=== PATIENT | female | born 1980 | race Caucasian/White ===

== ENCOUNTER → 2022-03-13 10:27 | Outpatient (CLI) | payer OTHER, SELFPAY ==
--- NOTE | ~2022-03-13 | MM_ITS ---
EXAMINATION: MM screening sarai BI w peter HISTORY: Screening TECHNIQUE: Craniocaudal and mediolateral oblique 3-D tomosynthesis images were obtained and synthetic 2-D images were generated. CAD analysis was submitted and interpreted. COMPARISON: No prior mammogram is available for comparison at this institution. BREAST PARENCHYMAL COMPOSITION: Breast composed of scattered areas of fibroglandular density FINDINGS: There is no evidence of suspicious mass, calcification, or architectural distortion to sugg est malignancy in either breast. There has been no suspicious interval change. IMPRESSION: 1. No mammographic evidence of malignancy. 2. Recommend routine screening mammography in one year. BI-RADS Category 1: Negative Reviewed, dictated and finalized at location A.
== END ==
PROVIDERS: PCP Family Medicine Sports Medicine; Visit Provider Obstetrics & Gynecology
DX: Z12.31 Encounter for screening mammogram for malignant neoplasm of breast (principal)
CPT/HCPCS: 77063; 77067

== ENCOUNTER 2023-05-23 00:58 | Day surgery (SDC) | payer OTHER, SELFPAY ==
[2023-05-13 14:23] VITALS: BMI 26.0
--- NOTE | 2023-05-13 14:38 | PC.NURSE ---
Report to the Outpatient Waiting Room, entrance under the green pavilion located off [facility], at 1100 on 05/23/23. Planned Procedure Time: 1300. Time changes happen often and if your time is changed the preop area will call you the afternoon before. - You and your visitor will be asked to self-screen and do not enter if you have any COVID symptoms. - A mask is optional within the hospital at this time. Patients may have clear liquids (water, carbonated beverages, clear teas, apple juice) until 3 hours prior to surgery with a maximum of 20 ounces. - No food from midnight until time of surgery Take the following medications with a SIP of water the morning of surgery: Norethindrone DO NOT STOP ANY OF YOUR OTHER PRESCRIPTION MEDICATIONS PRIOR TO SURGERY ?EXCEPT THE FOLLOWING Medications to discontinue per physician n/a Date to take last dose Please no make-up, nail moldovan, hairspray, perfume, deodorant, or body powder the day of surgery. No jewelry (including any body piercings) or valuables the day of surgery, leave them at home. Please take a shower or bath the night before, or the morning of, surgery with an antibacterial soap. Wear comfortable, loose fitting clothing. - Jewelry must be removed prior to entering the operating room. Rings and piercings that are not removed may be cut off. - The hospital will not accept responsibility for valuables. - Please leave all valuables, including medications, at home the day of surgery. If you are going home after surgery, a licensed funeral car driver must drive you home. - NO public transportation without another adult if you receive anesthesia. - We recommend that an adult stay with you for 24 hours following discharge. - We also recommend that you do not drive, make important decision, drink alcoholic beverages, or take any drugs that were not prescribed by your health care provider for at least 24 hours after your discharge time. Follow any additional instructions given to you from your surgeon. If you or anyone in your household have experienced Covid symptoms in the past week, please notify your surgeon or the nurse liaison at the phone number below for possible testing. Telephone instructions given to patient and asked if any additional questions and then verbalized understanding. Patient advised to call surgeon office or pre surgery nurse liaison [phone] if any additional questions.
--- NOTE | 2023-05-23 11:16 | WPDHPUPDATE1 ---
History and Physical Update Update Date/Time: 05/23/23 11:16 History and Physical has been reviewed, including an updated exam of the patient. There are NO changes in the patient's condition. Risks, benefits, and alternatives have been discussed and questions answered. Patient agrees to proceed with procedure.
--- NOTE | 2023-05-23 11:16 | W.PM.PROC2 ---
Procedure Note - Detailed Date of Procedure 05/23/23 Pre-op Diagnosis Micromastia Post-op Diagnosis Same Procedure Performed Bilateral augmentation mammaplasty Surgeon Alvin Ramsey MD Anesthesia General Findings Bilateral Odilia Bardales SoftTouch 520cc Right - REF# [facility]-520 SN [id number] Left - REF# [id number] SN [id number] Description of Procedure She is here today for bilateral breast augmentation. Previously and again today the risks, benefits, alternatives were discussed in extensive detail. I wanted her to be very realistic about the risks involved as well as expectations. We discussed aftercare and what to monitor for. Made sure answered all of her questions to her satisfaction today and consent was obtained. Marked in the preoperative holding area with their verification. The patient was taken to the operating room placed supine on the operating table. Anesthesia was provided by anesthesiology. A surgical time-out was taken. We cleansed the skin and 1% lidocaine and 0.25% Marcaine with epinephrine was used anesthetize as a field block. She was prepped and draped in a standard sterile fashion. Tegaderm nipple Astudillo were placed. A 15 blade used to make an incision along the inframammary fold. Dissection was continued at 45 degree angle until the chest wall as identified. I incised the pectoralis major along its inferior border and completely released the inferior border leaving the medial border intact. I created a subpectoral pocket in the appropriate dimensions based on our preoperative planning for the implant. I then copiously irrigated with saline solution and verified a strict hemostasis. Next the use a triple antibiotic and Betadine containing solution to irrigate the pocket. I washed my gloves with the triple antibiotic and Betadine solution. We washed the implant immediately upon opening it with this solution and only opened it when we needed it. I used implant funnel and no-touch technique. The implant was introduced into the pocket using the funnel. Having verified positioning of the implant this was closed using 2-0 PDS followed by 3-0 Monocryl in a running subcuticular 4-0 Monocryl followed by tissue glue. Fluffs and surgical bra were placed. Patient was awoke and taken to PACU without difficulty. All instrument sponge counts were correct at the end of the case. Estimated Blood Loss 25 Drains No Packing No Pathology None sent Complications No immediate complications Condition Stable Disposition PACU
[2023-05-23] MEDS: LACTATED RINGERS 1,000 ML 30 ML IV CONT (11:25)
--- NOTE | 2023-05-23 11:42 | P.PNAN_ITS ---
Anes - Initial Pre Proc Eval Procedure: Operation Date: 05/23/23 13:00 Proposed Procedures p Bilateral Breast Augmentation - Alvin Ramsey MD Date/Time: 05/23/23 11:42 Surgeon: Alvin Ramsey MD Pre Op Diagnosis: Micromastia Patient Data Age: 42 Gender: F Height: 1.74 m Weight: 78 kg Allergies Allergy/AdvReac Type Severity Reaction Status Date / Time No Known Allergies Allergy Verified 05/23/23 11:13 Home Medications Medication Instructions Recorded Confirmed Type estradiol 2 mg tablet 2 mg PO DAILY 05/13/23 05/23/23 History norethindrone acetate 5 mg tablet 5 mg PO DAILY 05/13/23 05/23/23 History Patient hx anesthesia problems: none Family hx anesthesia problems: none Results Review: All pre-operative results and documents have been reviewed as part of the pre- operative evaluation. [facility] Social History Social History Smoking packs per day: 0.15 Smoking cigarettes per day: 3.0 Years smoked: 12 Smoking pack-years: 1.80 Smoking status: Former smoker Tobacco type: cigarettes Second hand tobacco smoke exposure: No Smoking end date: 05/13/06 Alcohol intake: current Drinks per week: 3 Alcohol use details: wine Substance use: current Substance use type: marijuana Other substance usage details: daily Living arrangements: with family Spiritual care concerns: No Anes - Eval Final PreProcedure Day of Procedure 05/23/23 11:42 Patient weight: normal Heart: regular rate and rhythm Lungs: clear to auscultation Airway: Mallampati scale class II Neurological: alert and oriented Last oral intake: >/= 8 hours ASA classification: II Emergent: no Anesthetic plan: proceed Anesthesia type and monitoring: general LMA and standard monitoring Results Review: All pre-operative results and documents have been reviewed as part of the pre- operative evaluation. Informed Consent: The patient's anesthetic plan and its attendant risks and benefits were discussed with the patient/family/POA. Questions were solicited and answers provided to the satisfaction of the patient/family/POA.
[2023-05-23] MEDS: ceFAZolin 2 GM/D5W 50 ML 2 GM/50 ML BAG IVPB (11:51)
[2023-05-23] MEDS: LIDO 1%/EPINEPHRINE 1:100,000 20 ML VIAL 30 ML INFILTRATE (12:10)
[2023-05-23] MEDS: BUPivacaine HCL 0.25% PF 30 ML VIAL INFILTRATE (12:11)
[2023-05-23] MEDS: NACL 0.9% IRRIG POUR BOTTLE 900 ML, GENTAMICIN SULFATE INJ 160 MG, ceFAZolin 2 GM, POVI... IRRIGATION (12:12)
--- NOTE | 2023-05-23 12:34 | SUR.OPER ---
checked out 1 amp fentanyl and 60ml of propofol for this patient and gave to anesthesia Lisa Borja HANDKERCHIEF MAKER
[2023-05-23 12:55] VITALS: BP 123/82; PULSE 76; RESP 13; TEMP 36.3; O2SAT 100
[2023-05-23] MEDS: fentaNYL CITRATE INJ (*CRX) 100 MCG/2 ML VIAL 25 MCG IV PUSH ×4 (13:00→13:30)
[2023-05-23 13:10] VITALS: BP 132/79; PULSE 71; RESP 16; O2SAT 98
[2023-05-23 13:25] VITALS: BP 139/79; PULSE 63; RESP 20; O2SAT 99
[2023-05-23 13:42] VITALS: BP 134/79; PULSE 60; RESP 17; O2SAT 99
[2023-05-23 13:55] VITALS: BP 147/81; PULSE 64
[2023-05-23] MEDS: oxyCODONE HCL (*CRX) 5 MG TAB IR PO (13:57)
[2023-05-23 14:25] VITALS: BP 148/82; PULSE 52
== END 2023-05-23 14:43 | disposition home or self-care (01) ==
PROVIDERS: PCP Family Medicine Sports Medicine; Visit Provider Surgery Plastic and Reconstructive Surgery
PROC: (CPT 19325; principal; 2023-05-23 13:00)
DX: Z41.1 Encounter for cosmetic surgery (principal); N64.82 Hypoplasia of breast; Z87.891 Personal history of nicotine dependence; F12.90 Cannabis use, unspecified, uncomplicated
CPT/HCPCS: 19325; A9270; J0690; J1100; J1580; J2250; J2405; J2704; J3010; J7120

== ENCOUNTER 2023-12-09 07:00 | Outpatient (NON) | payer OTHER, SELFPAY | END 2023-12-09 07:01 | disposition home or self-care (01) | LOC: ANHLAB 12-10 07:01 | PROVIDERS: PCP Family Medicine Sports Medicine; Visit Provider Internal Medicine Gastroenterology | DX: R19.7 Diarrhea, unspecified (principal) | CPT/HCPCS: 88305 ==

== ENCOUNTER 2023-12-09 08:56 | Day surgery (SDC) | payer OTHER, SELFPAY ==
[2023-11-24 11:32] VITALS: BMI 26.9
[2023-11-25 14:20] VITALS: BMI 25.6
--- NOTE | 2023-12-08 19:38 | PM.HPGS ---
History of Present Illness History of Present Illness Consent: Risks, benefits, and alternatives have been discussed and questions answered. Patient agrees to proceed with procedure. Chief complaint: Diarrhea,Lower Abdominal Pain,unspecified Narrative: Courtney Goodwin is a 43 year old female who has been having intermittent episodes of diarrhea. She describes her stool as mushy, not hard to go to the bathroom but she will have to come back 3 or 4 times because she thinks she is done but then has to come back. She reports that her stomach starts hurting in the lower abdomen and it almost feels like period pains . Pain is crampy and intermittent and hurts enough to make her vomit. When she vomits she starts sweating her whole body and has to take off all her clothes. Symptoms have no correlation with stress and she has been unable to identify any known triggers. She had her gallbladder removed 2 years ago. She reports that this crampy pain originally started a couple years ago and has been getting more frequent. She also reports a new symptom of acidic diarrhea that feels like pooping burning fire . Review of Systems Review of Systems: All systems reviewed & are unremarkable except as noted in HPI and below PMFSH Social History Social History Smoking packs per day: 0.15 Smoking cigarettes per day: 3.0 Years smoked: 12 Smoking pack-years: 1.80 Smoking status: Former smoker Tobacco type: cigarettes Second hand tobacco smoke exposure: No Smoking end date: 05/13/06 Alcohol intake: current Drinks per week: 5 Alcohol use details: wine Substance use: current Substance use type: marijuana Other substance usage details: daily Last use: Daily Living arrangements: with family Spiritual care concerns: No Meds Home Medications and Allergies Home Medications Medication Instructions Recorded Confirmed Type estradiol 2 mg tablet 2 mg PO DAILY 05/13/23 12/09/23 History norethindrone acetate 5 mg tablet 5 mg PO DAILY 05/13/23 12/09/23 History cholestyramine (with sugar) 4 gram 4 g PO DAILY #30 ea 11/20/23 12/09/23 Rx powder for susp in a packet dicyclomine 10 mg capsule 10 mg PO TID #90 caps 11/20/23 12/09/23 Rx Allergies Allergy/AdvReac Type Severity Reaction Status Date / Time No Known Allergies Allergy Verified 12/09/23 10:19 Exam Resp: Auscultation: clear to auscultation bilaterally Cardio: Rate: regular rate Rhythm: regular rhythm GI: GI Palp: Yes Soft to palpation and No Tenderness to palpation present (GI) Assessment and Plan Assessment and plan (1) Diarrhea: Qualifiers: Diarrhea type: unspecified type Qualified Code(s): R19.7 - Diarrhea, unspecified Code(s): R19.7 - Diarrhea, unspecified Status: Acute Assessment and Plan: Colonoscopy with possible biopsy or polypectomy or cautery or injection of substances.
[2023-12-09 10:25] VITALS: BP 149/81; PULSE 63; RESP 22; TEMP 37.2; O2SAT 100; BMI 24.7
[2023-12-09] MEDS: LACTATED RINGERS 1,000 ML 150 ML IV CONT (10:37)
--- NOTE | 2023-12-09 10:38 | P.PNAN_ITS ---
Anes - Initial Pre Proc Eval Procedure: Operation Date: 12/09/23 11:30 Proposed Procedures p Diagnostic Colonoscopy - Roly Parrish MD Date/Time: 12/09/23 10:38 Surgeon: Roly Parrish MD Pre Op Diagnosis: Diarrhea,Lower Abdominal Pain,unspecified Patient Data Age: 43 Gender: F Height: 1.75 m Weight: 76.15 kg Last Vital Signs Temp 37.2 C 12/09/23 10:25 Pulse 63 12/09/23 10:25 Resp 22 H 12/09/23 10:25 BP 149/81 H 12/09/23 10:25 Pulse Ox 100 12/09/23 10:25 O2 Del Method Room Air 12/09/23 10:25 Allergies Allergy/AdvReac Type Severity Reaction Status Date / Time No Known Allergies Allergy Verified 12/09/23 10:19 Home Medications Medication Instructions Recorded Confirmed Type estradiol 2 mg tablet 2 mg PO DAILY 05/13/23 12/09/23 History norethindrone acetate 5 mg tablet 5 mg PO DAILY 05/13/23 12/09/23 History cholestyramine (with sugar) 4 gram 4 g PO DAILY #30 ea 11/20/23 12/09/23 Rx powder for susp in a packet dicyclomine 10 mg capsule 10 mg PO TID #90 caps 11/20/23 12/09/23 Rx Patient hx anesthesia problems: none Family hx anesthesia problems: none Results Review: All pre-operative results and documents have been reviewed as part of the pre- operative evaluation. [facility] Past Medical History Medical History (Updated 12/09/23 @ 10:38 by Abraham Munoz MD) Anxiety Surgical History Surgical History H/O breast augmentation Social History Social History Smoking packs per day: 0.15 Smoking cigarettes per day: 3.0 Years smoked: 12 Smoking pack-years: 1.80 Smoking status: Former smoker Tobacco type: cigarettes Second hand tobacco smoke exposure: No Smoking end date: 05/13/06 Alcohol intake: current Drinks per week: 5 Alcohol use details: wine Substance use: current Substance use type: marijuana Other substance usage details: daily Last use: Daily Living arrangements: with family Spiritual care concerns: No Anes - Eval Final PreProcedure Day of Procedure 12/09/23 10:38 Patient weight: normal Heart: regular rate and rhythm Lungs: clear to auscultation Airway: Mallampati scale class II Neurological: alert and oriented Last oral intake: >/= 8 hours ASA classification: II Emergent: no Anesthetic plan: proceed Anesthesia type and monitoring: general GIVS and standard monitoring Results Review: All pre-operative results and documents have been reviewed as part of the pre- operative evaluation. Informed Consent: The patient's anesthetic plan and its attendant risks and benefits were discussed with the patient/family/POA. Questions were solicited and answers provided to the satisfaction of the patient/family/POA.
[2023-12-09] MEDS: SIMETHICONE ORAL SUSPENSION 20 MG/0.3 ML 30 ML BOTTLE 0.6 ML IRRIGATION (11:10)
[2023-12-09 11:17] VITALS: BP 124/76; PULSE 75; RESP 15; O2SAT 100
[2023-12-09 11:27] VITALS: BP 125/82; PULSE 68; RESP 16; O2SAT 99
[2023-12-09 11:37] VITALS: BP 135/80; PULSE 60; RESP 16; O2SAT 100
--- NOTE | 2023-12-09 11:53 | WPDANESPN ---
Anes - Prog Note Post-Op Date/Time: 12/09/23 11:53 Cardiovascular status: normal Respiratory status: normal Airway patency: baseline Mental status: baseline Post-Op hydration status: normal Vital Signs: Last Vital Signs Temp 37.2 C 12/09/23 10:25 Pulse 60 12/09/23 11:37 Resp 16 12/09/23 11:37 BP 135/80 12/09/23 11:37 Pulse Ox 100 12/09/23 11:37 O2 Del Method Room Air 12/09/23 11:37 Pain Score (VAS): 0/10 I/O: Intake & Output 12/08/23 12/09/23 12/09/23 23:59 07:59 15:59 Intake Total 500 Balance 500 Patient Feedback: Patient satisfied with anesthetic care.
== END 2023-12-09 11:47 | disposition home or self-care (01) ==
PROVIDERS: PCP Family Medicine Sports Medicine; Visit Provider Internal Medicine Gastroenterology
PROC: 0DJD8ZZ Inspection of Lower Intestinal Tract, Via Natural or Artificial Opening Endoscopic (ICD-10-PCS; CPT 45378; principal; 2023-12-09 11:30)
DX: K59.1 Functional diarrhea (principal)
CPT/HCPCS: 45380

== ENCOUNTER 2025-03-23 01:04 | Day surgery (SDC) | payer OTHER, SELFPAY ==
--- OUTSIDE RECORDS SUMMARY | 2020-05-31 12:13 | XMS_ITS | Continuity of Care Document ---
Author Organization [facility] Address [address] [facility] [address] [place] [address] Phone Care Team Providers Care Satellite Technician Name Role Phone Gladys BENNETTR/Xochitl Amaral Unavailable Unavailabl e Procedures Procedure Date Therapeutic Activities Therapeutic Exercise Neuromuscular Re-Ed Manual Therapy Therapeutic Activities Neuromuscular Re-Ed Therapeutic Exercise Manual Therapy Hot or Cold Pack Therapeutic Activities Therapeutic Exercise Manual Therapy Neuromuscular Re-Ed Hot or Cold Pack Therapeutic Exercise Hot or Cold Pack Neuromuscular Re-Ed Therapeutic Activities Manual Therapy Therapeutic Activities Manual Therapy Neuromuscular Re-Ed Hot or Cold Pack Progress Note Therapeutic Exercise Therapeutic Exercise Therapeutic Activities Manual Therapy Hot or Cold Pack Therapeutic Exercise Hot or Cold Pack Manual Therapy Therapeutic Activities Therapeutic Exercise OT Re-Evaluation Hot or Cold Pack Neuromuscular Re-Ed Therapeutic Activities Progress Note Therapeutic Exercise Hot or Cold Pack Manual Therapy Therapeutic Activities Neuromuscular Re-Ed Manual Therapy Hot or Cold Pack Therapeutic Activities Hot or Cold Pack Manual Therapy Neuromuscular Re-Ed Therapeutic Exercise Therapeutic Activities Hot or Cold Pack Therapeutic Exercise Neuromuscular Re-Ed Orthotic Mgmt and Training Manual Therapy MP Conservation Officer-based Therapeutic Exercise Therapeutic Activities Manual Therapy Hot or Cold Pack Hot or Cold Pack Therapeutic Exercise Manual Therapy Therapeutic Activities Therapeutic Activities Therapeutic Exercise Manual Therapy Hot or Cold Pack OT Evaluation Low Complexity Hot or Cold Pack Therapeutic Exercise Orthotic Mgmt and Training Gutter Across MP-Radial gutter ulnar gut ter Advance Directives Directive Yes / No Effective Date File Name No Information Encounters Encounter Description Practice Location Reason(s) For Visit Diagnoses Date Provider Providers Copied on Encounter [facility], [place], [place], [id number], tel:[phone] Kitty Tellez No Information 1 Gladys Leung. . [facility], [place], [place], [id number], tel:[phone] [place] No Information 1 Roby Pizano. [address] [facility], [address], [place], [address], [place]. tel:[phone] Referring Provider: Vladimir Welch, [address], [place], [address]. tel:[phone], [place], [place], [id number], [place] tel:[phone] [place] No Information Lazaro-0 1 Calashonda Pizano. [address] [place] [address], [address], [place], [address], [place]. tel:[phone] Referring Provider: Vladimir Welch, [address], [place], [address]. tel:[phone] [address], [place], [place], [id number], [place] tel:[phone] [place] No Information Apr-3 0-202 0 Ca Jerica. [address] [place] [address], [address], [place], [address], [place]. tel:[phone] Referring Provider: Vladimir Welch, [address], [place], [address]. tel:[phone] [address], [place], [place], [id number], [place] tel:[phone] [place] No Information Apr-2 0 Ca Jerica. [address] [place] [address], [address], [place], [address], [place]. tel:[phone] Referring Provider: Vladimir Welch, [address], [place], [address]. tel:[phone] [address], [place], [place], [id number], [place] tel:[phone] [place] No Information Apr-2 2-202 0 Ca Jerica. [address] [place] [address], [address], [place], [address], [place]. tel:[phone] Referring Provider: Vladimir Welch, [address], [place], [address]. tel:[phone] [address], [place], [place], [id number], [place] tel:[phone] [place] No Information 0 Roby Pizano. [address] [place] [address], [address], [place], [facility], [place]. tel:[phone] Referring Provider: Vladimir Welch, [address], [place], [address]. tel:[phone] [facility] [address], [place], [place], [id number], tel:[phone] [place] No Information 0 Roby Pizano. [address] [place] [address], [address], [place], [facility], [place]. tel:[phone] Referring Provider: Vladimir Welch, [address], [place], [address]. tel:[phone] [facility] [address], [place], [place], [id number], [place] tel:[phone] [place] No Information 0 Roby Pizano. [address] [place] [address], [address], [place], [address], [place]. tel:[phone] Referring Provider: Vladimir Welch, [address], [place], [address]. tel:[phone] [facility] [address], [place], [place], [id number], [place] tel:[phone] [place] No Information 0 0 Roby Pizano. [address] [place] [address], [address], [place], [address], [place]. tel:[phone] Referring Provider: Vladimir Welch, [address], [place], [address]. tel:[phone] [facility] [address], [place], [place], [id number], [place] tel:[phone] [place] No Information 0 Ca Jerica. [address] [place] [address], [address], [place], [address], [place]. tel:[phone] Referring Provider: Vladimir Welch, [address], [place], [address]. tel:[phone] [address], [place], [place], [address], [place] tel:[phone] [place] No Information 0 Ca Jerica. [address] [place] [address], [address], [place], [address], [place]. tel:[phone] Referring Provider: Vladimir Welch, [address], [place], [address]. tel:[phone] [address], [place], [place], [address], [place] tel:[phone] [place] No Information 0 Ca Jerica. [address] [place] [address], [address], [place], [address], [place]. tel:[phone] Referring Provider: Vladimir Welch, [address], [place], [address]. tel:[phone] [facility] [address] [place], [place] [address], [place], [place], [address], [place] tel:[phone] [place] No Information 0 Ca Jerica. [address] [place] [address], [address], [place], [address], [place]. tel:[phone] Referring Provider: Elvin [address], [place], [address]. tel:[phone] [facility] [address], [place], [place], [id number], [place] tel:[phone] [place] No Information 0 Ca Jerica. [address] [place] [address] [address], [place], [facility], . tel:[phone] Referring Provider: Elvin [address], [place], [address]. tel:[phone], [place], [id number], tel:[phone] [place] No Information 0 Roby Pizano. [address] [place] [address], [address], [place], [facility], [place]. tel:[phone] Referring Provider: Vladimir Welch [address], [place], [address]. tel:[phone], [id number], tel:[phone] [place] No Information 0 Roby Pizano. [address] [place] [address], [address], [place], [facility], [place]. tel:[phone] Referring Provider: Vladimir Welch [address], [place], [address]. tel:[phone], [id number], tel:[phone] [place] No Information 0 David Guzman. [address] [place] [address], [address], [place], [facility], [place]. tel:[phone] Referring Provider: Vladimir Welch [address], [place], [address]. tel:[phone] Family History Family Member Type Diagnosis Age At Onset No Information Payers Payer name Insurance type Covered constitution party ID Authoriza tiyao(s) [facility] CI [id number] Social History Type Description Quantity Date Captured Comments Sex Female Smoking Status No Information Chief Complaint And Reason For Visit No Information Reason For Referral Reason For Referral No Information Plan Of Treatment Date Type Action Status Nutrition Recommendation Nutrition / feed ing management completed History Of Present Illness Encounter Date Complaint History Of Prese nt Illness No Information Functional Status Date Functional Assessmen t No Information Instructions Date Instruction Additional Infor lacie Nutition therapy Related to Over weight Assessments Type Assessment Date No Information Patient Care Teams Name Effective Dates (start - stop) Status Members No Information
[2025-03-09 12:54] VITALS: BMI 25.0
--- NOTE | 2025-03-09 13:12 | PC.NURSE ---
[facility] has started construction of its new state of the art ER which will open Spring 2026. With this, we anticipate parking may be a challenge for some our surgical patients and families. Parking spaces are limited but are available for all Surgical, obstetrics, and ER patients sharing this lot. If you arrive and find you are having a hard time finding a parking space, please note that we understand the challenges, please drive around the hospital and park near Hospital Entrance 1. When you enter this entrance, you can ask a volunteer to direct or take you back to the surgical waiting area to check in. We appreciate everyone?s understanding of these expected challenges while we build for your future. Report to the Outpatient Waiting Room, entrance under the green pavilion located off [address], at time 0830 on date 03/23/25. Planned Procedure Time: 1030.? Time changes happen often and if your time is changed the preop area will call you the afternoon before. - You and your visitor will be asked to self-screen and do not enter if you have any COVID symptoms. Please call surgeon if you need to reschedule. - A mask is optional within the hospital at this time. Patients may have clear liquids (water, carbonated beverages, clear teas, apple juice) until 3 hours prior to surgery with a maximum of 20 ounces. - No food from midnight until time of surgery and no smoking, or chewing tobacco (or any form of nicotine). No chewing gum, candy or mints. - Infants may have breast milk until 4 hours before surgery, formula 6 hours prior to surgery. - Children will be allowed to drink immediately following surgery.? If applicable, please bring a bottle or sippy cup to assist with drinking. Juice, water, soda, and popsicles are readily available.? For infants on formula, please bring formula the day of surgery.? Pacifiers are allowed. Take only the following medications with a SIP of water on the morning of surgery: N/A DO NOT STOP ANY OF YOUR OTHER PRESCRIPTION MEDICATIONS PRIOR TO SURGERY EXCEPT THE FOLLOWING Hold all vitamins and supplements for 3 days per anesthesiologist. Medications to discontinue per physician N/A Please no make-up, nail [place] of [place], hairspray, perfume, deodorant, or body powder the day of surgery.? No jewelry (including any body piercings) or valuables the day of surgery, leave them at home.? Please take a shower or bath the night before, or the morning of, surgery with an antibacterial soap.? Wear comfortable, loose fitting clothing.? Children are encouraged to wear pajamas. - Jewelry must be removed prior to entering the operating room.? Rings and piercings that are not removed may be cut off. - The hospital will not accept responsibility for valuables.? - Please leave all valuables, including medications, at home the day of surgery. If you are going home after surgery, a licensed lyft driver must drive you home.? - NO public transportation without another adult if you receive anesthesia. - We recommend that an adult stay with you for 24 hours following discharge. - We also recommend that you do not drive, make important decision, drink alcoholic beverages, or take any drugs that were not prescribed by your health care provider for at least 24 hours after your discharge time. For Pediatric surgeries, we recommend two adults accompany the child home. Follow any additional instructions given to you from your surgeon. Telephone instructions given to ____Courtney and asked if any additional questions and then verbalized understanding. Patient advised to call surgeon office or pre surgery nurse liaison [phone] if any additional questions.
--- OUTSIDE RECORDS SUMMARY | 2025-03-23 01:07 | XMS_ITS | Patient Health Record ---
Author Organization [facility] Address [address] [place] [address] Care Team Providers Care Principal Associate Name Role Phone Arvind Alegria MD Primary Care Provider Unavail Asif Echevarria Unavailable [phone] Allergies No Known Allergies Reason For Referral No Information Medications Medication SIG (Take, Route, Frequency, Duration) Notes Start Date End Date Status Norethindrone Acetate Active Estradiol Active Pantoprazole Sodium 40 MG 1 tablet Orall y Once a day; Duration: 30 day(s) 12/06/2020 Active Social History Tobacco Use: Social History Observation Description Date Details (start date - stop date) Former Smoker NA - NA Tobacco Use/Smoking Question Answer Notes Are you a former smoker How long has it been since you last smoked? > 10 years Problems Problem Type SNOMED Code ICD Code Onset Dates Problem Status W/U Status Risk Notes Problem Epigastric pain (89869053) Epigastric pain (R10.13) Active confirmed She complains of upper abdominal pain that radiates to her chest and back shoulder blades. Suspect symptoms may be related to gallbladder dysfunction. Problem Nausea and vomiting (41120925) Nausea and vomiting (R11.2) Active confirmed She has been having nausea and vomiting for the last couple of years. Her symptoms are worse in the morning when waking up. She frequently brings up bile. Prior ultrasound imaging has been normal. Differential diagnosis includes gallbladder dysfunction, gastritis, peptic ulcer, or others. Problem Loose stools (628106240) Loose stools (R19.5) Active confirmed Her bowel movements are irregular. The consistency varies between being soft and loose. She often has to vomit when she is having a bowel movement Problem Backache (326130847) Pain radiating to back (M54.9) Active confirmed Plan Of Treatment Pending Test Test Name Order Date Upper Endoscopy 12/06/2020 Insurance Providers Payer Name Payer Address Payer Phone Subscriber Number Group Number Insured Name Patient Relationship to Insured Coverage Start Date Coverage End Date [facility] Choice/ choice Plus [id number] [address] [address] [place] [address] [id number] Jeanmarie Goodwin Spouse - patient is the spouse of the insured Medical (General) History Surgical History Surgery Date(Month/Year) Tubal Ligation Broken Middle Finger
--- OUTSIDE RECORDS SUMMARY | 2025-03-23 01:07 | XMS_ITS | Clinical Summary ---
Author Organization [email or web address] Address [address] [place] [address] Care Team Providers Care Hydro Technician Name Role Phone Unavailable Primary Care Provider Unavailabl e Source Comments [email or web address],non-owned Affiliates and Associated Physician Practices is amultiple site organization consisting of ambulatory clinics and hospital sitesin [place], [place], [place] and [place]. This disclosure is being madepursuant to the Care Everywhere program and may not contain all information available regarding this patient. Last updated 18.[email or web address] Allergies No known active allergies Medications * Be aware that medications may not be up to date on this document. Alwaysverify current medications with the patient. methylPREDNISol one (MEDROL DOSEPAK) 4 MG tablet 1 dose pack PO as directed on package 1 Each 7 Active albuterol HFA (PROAIR HFA) 108 (90 BASE) MCG/ACT inhaler Inhale 2 Puffs by mouth every 4 hours as needed for Shortness of Breath, Wheezing or Cough 1 Inhaler 7 Active Active Problems No known active problems Social History Tobacco Use Types Packs/Day Years Used Date Smoking Tobacco: Never Comments Unknown Sex and Gender Information Value Date Recorded Sex Assigned at Not on file Legal Sex Female 10:24 AM CDT Gender Identity Not on file Sexual Orientation Not on file Last Filed Vital Signs Vital Sign Reading Time Taken Comments Blood Pressure 108/62 09/06/2016 2:32 PM CDT Pulse 64 09/06/2016 2:32 PM CDT Temperature 36.7 C (98 F) 09/06/2016 2:32 PM CDT Respiratory Rate 18 09/06/2016 2:32 PM CDT Oxygen Saturation 98% 09/06/2016 2:32 PM CDT Inhaled Oxygen Concentration - - Weight 74.8 kg (165 lb) 09/06/2016 2:32 PM CDT Height 174 cm (5' 8.5) 09/06/2016 2:32 PM CDT Body Mass Index 24.72 09/06/2016 2:32 PM CDT Plan of Treatment Health Maintenance Due Date Last Done Comments COLOGUARD (AGES 45-75) - COL ON CA SCREENING 1978 COLON MONITORING 1978 COLONOSCOPY - COLON CA SCREENING 1978 CT COLONOGRAPHY - COLON CA SCREENING 1978 Colorectal Cancer Screening 1978 FIT - COLON CA SCREENING 1978 FLEX SIG - COLON CA SCREENING 1978 LIPID TESTING 1978 MAMMOGRAM 1978 HIV SCREENING 1993 HEPATITIS C SCREENING 10/10/1996 DTAP/TDAP/TD VACCINES (1 - Tdap) 1997 HEPATITIS B VACCINE (1 of 3 - 19+ 3-dose series) 1997 PAP SMEAR 10/16/1999 DEPRESSION SCREENING 05/12/2024 COVID-19 VACCINE (1 - 2023-2 5 season) 2025 INFLUENZA VACCINE (#1) 2025 ZOSTER VACCINE (1 of 2) 2028 HIB VACCINE Aged Out No longer eligi ble based on patient's age to complete this topic HPV VACCINE Aged Out No longer eligi ble based on patient's age to complete this topic MENINGOCOCCAL (Group B) VACC INE SHARED DECISION-MAKING Aged Out No longer eligibl e based on patient's age to complete this topic MENINGOCOCCAL GROUPS A/C/Y/W VACCINE Aged Out No longer eligible b ased on patient's age to complete this topic PNEUMOCOCCAL VACCINE Aged Out No long er eligible based on patient's age to complete this topic Insurance [facility] * Guarantor: COURTNEY GLOVER Account Type Relation to Patient Date of Phone Billing Address Personal/Family [address] [place] [address] SELF PAY NO INSURANCE Member Subscriber Plan / Payer (Ef fective for All Dates) Name:Courtney Glover Member ID:Not on file Relation to Subscriber:Not on file Name:COURTNEY GLOVER Subscriber ID:Not on file Address: [address] [place] [address] Payer ID:Not on file Group ID:Not on file Type:Self Pay Address: [facility] * Guarantor: COURTNEY GLOVER Account Type Relation to Patient Date of Phone Billing Address Personal/Family [address] [place] [address] SELF PAY NO INSURANCE Member Subscriber Plan / Payer (Ef fective for All Dates) Name:Courtney Glover Member ID:Not on file Relation to Subscriber:Not on file Name:COURTNEY GLOVER Subscriber ID:Not on file Address: [address] [place] [address] Payer ID:Not on file Group ID:Not on file Type:Self Pay Address: [facility] Member Subscriber Plan / Payer (Ef fective 2023-Present) Name:Courtney Glover Relation to Subscriber:Spouse Name:Christa Jeanmarie Millan Date of :1967 Address: [address] [place] [address] Payer ID:[id number] (NAIC) Type:HMO Address: [id number] * Guarantor: COURTNEY GLOVER Account Type Relation to Patient Date of Phone Billing Address Personal/Family [address] [place] [address] SELF PAY NO INSURANCE Member Subscriber Plan / Payer (Ef fective for All Dates) Name:Courtney Glover Member ID:Not on file Relation to Subscriber:Not on file Name:COURTNEY GLOVER Subscriber ID:Not on file Address: [address] [place] [address] Payer ID:Not on file Group ID:Not on file Type:Self Pay Address: [facility] Member Subscriber Plan / Payer (Ef fective 2023-Present) Name:Courtney Glover Relation to Subscriber:Spouse Name:Jeanmarie Glover Date of :1967 Address: [address] [place] [address] Payer ID:[id number] (NAIC) Type:[employer] Address: [place] [id number]
--- OUTSIDE RECORDS SUMMARY | 2025-03-23 01:07 | XMS_ITS | Data Portability ---
Author Organization [facility] Address [address] [place] [address] [place] [address] Care Team Providers Care Manager Ethics Name Role Phone THOMASCARLEY FISH Primary Care Provider [phone] Assessment No assessment recorded. Plan of Treatment Reminders Order Date Submit Date Provider Last Modified By Organization Details Last Modified Time Details Appointments SURG Hysterosc opy 2024 10:30A Idania PHILLIPS MD Not available Not available Not available U/S F/U 2024 03:30P Idania PHILLIPS MD Not available Not available Not available SURG POST OP 2024 02:45P Idania PHILLIPS MD Not available Not available Not available Lab urinalysi s, dipstick 2024 025 [email or web address] [address], [address], [place], [address], 08/16/2024 17:52:26 Referral None recorded. Procedures None recorded. Surgeries hysterosc opy, with endometri al ablation (SURG) 2024 025 [id number] [facility], [address], [place], [address], 03/07/2025 10:22:22 Imaging US, transvagi nal 2024 025 NANCY [address], [address], [place], [address], 03/21/2025 18:34:42 US, pelvis 2024 025 [email or web address] [address], [address], [place], [address], 01/18/2025 19:42:30 US, transvagi nal 2024 025 [email or web address] [address], [address], [place], [address], 01/18/2025 19:42:30 Medication Orders cyanocoba judit (vit B-12) 1,000 mcg/mL injection solution 2024 025 [employer] [facility], [address] [place] [address], [address], 03/05/2025 11:37:29 Patient TargetsNo targets recorded. Patient InstructionsNo instructions recorded. Reason for Referral None Reported. Results Created Date Observation Date Name Description Value Unit Range Abnormal Flag Note LastModifiedBy Organization Detail LastModifiedTime 08/17/1908/16/2024 CT/GC AND TRICH OMONA S VAGIN LOS (RRNA ), URINE chlamydia trachomatis, PCR Negati ve negati ve Not Available [facility] (Lab) [address] [facility], [place], [address], 08/17/2024 12:08:17 08/17/19 25 08/16/2024 CT/GC AND TRICH OMONA S VAGIN LOS (RRNA ), URINE neisseria gonorrhoeae, PCR Negati ve negati ve Not Available [facility] (Lab) [address] , [place], [address], 08/17/2024 12:08:17 08/17/19 25 08/16/2024 CT/GC AND TRICH OMONA S VAGIN LOS (RRNA ), URINE trichomonas vaginalis ribosomal RNA (rrna) Negati ve negati ve Not Available [facility] (Lab) [address] , [place], [address], 08/17/2024 12:08:17 01/19/20 25 01/18/2025 US, pelvi s No observ ation record ed. [email or web address] [address], [place], [address], 01/18/2025 17:50:22 01/19/20 25 01/18/2025 US, trans vagin al No observ ation record ed. [email or web address] [address], [place], [address], 01/18/2025 17:50:33 01/19/20 25 01/18/2025 US, pelvi s No observ ation record ed. [email or web address] [address], [place], [address], 01/18/2025 19:26:48 03/21/20 25 03/21/2025 US, trans vagin al No observ ation [facility] [address], [place], [address], 03/21/2025 18:52:35 03/21/20 25 03/21/2025 US, trans vagin al No observ ation record ed. [email or web address] [address], [place], [address], 03/22/2025 11:13:31 Result Notes None recorded. Problems Name Problem SNOMED Code Status Onset Date Resolution Date Notes Provider Name and Address Organization Details Recorded Time Routine antenata l care Completed 201008/24/2013 Supervis ion of other normal pregnanc y;Record ed Elsewher e: No Locat ion: [facility] Source: EHR Grinder Set Up Operator Gear Tool brenda: N Practi ce ID: 0001 Surya lable Time: 02:00:00 PM Tina cortés [facility] 2 09:52:02 Dysuria [id number] Completed 201308/02/2021 Dysuria; Practice ID: [id number] Tina cortés [facility] 2 09:53:07 Generali zed hyperhid rosis [id number] Active 2016 Generali zed hyperhid rosis;Pr actice ID: 0001 Not Available [facility] 0 14:38:24 Emotiona l state finding Active 2018 Anxiety depressi on;Recor ded Elsewher e: No [facility]at [facility] ource: EHR Grinder Set Up Operator Gear Tool brenda: N Practi ce ID: 0001 Surya lable Time: 11:00:00 AM Not Available [facility] 0 14:38:25 Menopaus e present 532809405 Active 2018 Menopaus al and female climacte adriel states;P ractice ID: 0001 Not Available [facility] 0 14:38:24 Problem Notes None recorded. Procedures Surgical History Date Name Laterality Status Provider Name and Address Organization Details Recorded Time 05/23/19 24 Breast Implants completed [facility] 11/17/2023 11:10:41 10/27/19 23 Date of Last Pap Smear completed [facility] 11/17/2023 11:07:45 03/13/20 22 Date of Last Mammogram completed [facility] 02/27/2023 11:49:56 03/12/20 21 Cholecystectomy completed Tina Garcia [facility] 08/02/2021 10:06:05 05/12/19 13 Colposcopy completed Dinora Wilson [facility] 04/17/2020 12:20:32 10/11/19 12 Tubal Ligation completed Dinora Wilson [facility] 04/17/2020 12:19:03 Imaging Results None recorded. Procedure Notes None recorded. Medical Equipment None Reported. Allergies No known drug allergies Medications Name Sig Start Date Stop Date Status Note LastModified by Organization Details LastModified Time Prescript ion - Prior Authoriza tion Request active Not Available Not Available Not Available compound drug 02/27 completed Not Available Not Available Not Available lidocaine 2%/antaci d/diphenh y111 SWISH AND SPIT 10ML EVERY 6 HOURS FOR 3 DAYS 02/27 completed Not Available Not Available Not Available carisopro dol 350 mg tablet TAKE 1 TABLET BY MOUTH EVERY 8 HOURS NEEDED FOR PAIN OR MUSCLE SPASM 10/26 completed Not Available Not Available Not Available amoxicill in 500 mg capsule TAKE 1 CAPSULE BY MOUTH TWICE DAILY FOR 7 DAYS 02/27 completed Not Available Not Available Not Available fluconazo le 100 mg tablet 02/27 completed Not Available Not Available Not Available doxycycli ne hyclate 100 mg capsule TAKE 1 CAPSULE BY MOUTH TWICE DAILY FOR 5 DAYS 02/27 completed Not Available Not Available Not Available clindamyc in HCl 300 mg capsule TAKE 1 CAPSULE BY MOUTH THREE TIMES DAILY FOR 10 DAYS 02/27 completed Not Available Not Available Not Available ibuprofen 800 mg tablet TAKE 1 TABLET BY MOUTH EVERY 8 HOURS NEEDED FOR PAIN 08/02 completed Not Available Not Available Not Available fluconazo le 150 mg tablet take 1 tablet by oral route today, and second pill in 2 days active Not Available Not Available No t Available valacyclo vir 1 gram tablet TAKE 1 TABLET BY MOUTH THREE TIMES DAILY FOR 7 DAYS 08/30 completed Not Available Not Available Not Available hydrocodo ne 5 mg-acetam inophen 325 mg tablet TAKE 1 TABLET BY MOUTH EVERY FOUR HOURS NEEDED FOR PAIN 08/02 completed Not Available Not Available Not Available Adderall 5 mg tablet take 1 tablet by oral route 2 times every day before breakfas t and at noon 09/24 completed Prescrib april Elsew e: Yes Loca tion: [facility] M odify By: [email or web address] Encounte r DateTime : 04/23/20 18 09:45:00 AM Not Available Not Available Not Available fluconazo le 200 mg tablet Take 1 tablet PO on days 1, 4 & 7 x 3 doses. 02/27 completed Not Available Not Available Not Available ondansetr on HCl 4 mg tablet TAKE 1 TABLET BY MOUTH EVERY 6 HOURS NEEDED FOR NAUSEA 10/26 completed Not Available Not Available Not Available testoster one cypionate 100 mg/mL intramusc ular oil ADMINIST ER 0.5 ML IN THE MUSCLE EVERY 2 WEEKS 2024 active Not Available Not Available Not Avai louisa Rashaad es Complete (iron) chewable tablet 04/23 completed Prescrib ed Elsewher e: No [facility] odify By: [email or web address] trick En counter DateTime : 01/30/20 11 02:00:00 PM Not Available Not Available Not Available Zithromax Z-Lei 250 mg tablet take 2 tablet (500MG) by oral route every day for 1 day then 1 tablet (250 mg) by oral route once daily for 4 days 09/13 completed Prescrib ed Elsewher e: No [facility] : 09/06/19 12 11:17:03 AM Not Available Not Available Not Available ciproflox acin 500 mg tablet Take 1 tablet every 12 hours by oral route. 10/26 completed Not Available Not Available Not Available sulfameth oxazole 800 mg-trimet hoprim 160 mg tablet TAKE 1 TABLET BY MOUTH EVERY 12 HOURS 08/02 completed Not Available Not Available Not Available omeprazol e 40 mg capsule,d elayed release TAKE 1 CAPSULE BY MOUTH DAILY 08/02 completed Not Available Not Available Not Available Reglan 10 mg tablet take 1 tablet (10MG) by oral route 4 times every day 30 minutes before meals and at bedtime 04/23 completed Prescrib ed Elsewher e: No Locat ion: [facility] odify By: [email or web address] trick En counter DateTime : 02/19/20 11 09:33:07 AM Not Available Not Available Not Available triamcino lone acetonide 0.1 % topical cream APPLY GRAM TOPICALL Y TO THE AFFECTED AREA TWICE DAILY 02/27 completed Not Available Not Available Not Available nystatin- triamcino lone 100,000 unit/gram -0.1 % topical ointment APPLY TOPICALL Y TO THE AFFECTED AREA TWICE DAILY NEEDED 10/26 completed Not Available Not Available Not Available cefadroxi l 500 mg capsule 05/18 completed Not Available Not Available Not Available oxycodone -acetamin ophen 5 mg-325 mg tablet TAKE 1 TABLET BY MOUTH EVERY 6 HOURS NEEDED FOR PAIN 10/26 completed Not Available Not Available Not Available Metrogel Vaginal 0.75 % (37.5 mg/5 gram) insert 1 applicat orful by vaginal route every day at bedtime for 5 nights 07/24 completed Prescrib ed Elsewher e: No [facility] odify By: [email or web address] arsenk En counter DateTime : 12/15/19 14 09:50:22 AM Not Available Not Available Not Available estradiol 1 mg tablet take 1 tablet by oral route every day 07/07 completed Prescrib ed Elsewher e: No Locat ion: [facility] odify By: [email or web address] Gunner r DateTime : 04/23/20 18 09:45:00 AM Not Available Not Available Not Available Flagyl 500 mg tablet take 1 tablet by oral route twice a day for 7 days 03/26 completed Prescrib ed Elsewher e: No Locat ion: [facility] odify By: [email or web address] n Ish ter DateTime : 02/18/20 19 11:08:24 AM Not Available Not Available Not Available phenazopy ridine 100 mg tablet TAKE 1 TABLET BY MOUTH THREE TIMES DAILY FOR 7 DAYS NEEDED 02/27 completed Not Available Not Available Not Available pantopraz ole 40 mg tablet,de layed release TAKE 1 TABLET BY MOUTH EVERY DAY 02/27 completed Not Available Not Available Not Available cyanocoba judit (vit B-12) 1,000 mcg/mL injection solution Inject 1 mL every month by subcutan eous route. 2024 active Not Available Not Available Not Avai lable docusate sodium 100 mg capsule TAKE ONE CAPSULE BY MOUTH TWICE DAILY 10/26 completed Not Available Not Available Not Available estradiol 2 mg tablet TAKE 1 TABLET DAILY (MUST MAKE APPOINTM ENT BEFORE ANY FUTURE REFILLS AND WILL ONLY FILL FOR 1 MONTH) 2024 active Not Available Not Available Not Avai lable norethind eric acetate 5 mg tablet TAKE 1 TABLET BY MOUTH EVERY DAY 2024 active Not Available Not Available Not Avai lable ergocalci ferol (vitamin D2) 1,250 mcg (50,000 unit) capsule TAKE 1 CAPSULE BY MOUTH WEEKLY FOR 8 WEEKS 08/30 completed Not Available Not Available Not Available Vitamin B-6 50 mg tablet take 1 by Oral route every 12 for 30 02/27 completed Prescrib ed Elsewher e: No Locat ion: [facility] Modify By: june godinez DateTime : 01/30/20 11 02:00:00 PM Not Available Not Available Not Available methylpre dnisolone 4 mg tablets in a dose pack FOLLOW PACKAGE DIRECTIO NS 02/27 completed Not Available Not Available Not Available ondansetr on 4 mg disintegr ating tablet DISSOLVE 1 TABLET ON THE TONGUE EVERY 6 TO 8 HOURS NEEDED FOR NAUSEA OR VOMITING 08/02 completed Not Available Not Available Not Available dicyclomi ne 10 mg capsule TAKE 1 CAPSULE BY MOUTH THREE TIMES DAILY active Not Available Not Available No t Available progester one micronize d 100 mg capsule Take 2 capsules every day by oral route for 12 days. active Not Available Not Available No t Available amoxicill in 875 mg-potass ium clavulana te 125 mg tablet TAKE 1 TABLET BY MOUTH TWICE DAILY FOR 7 DAYS 08/30 completed Not Available Not Available Not Available Benadryl Allergy 25 mg tablet take 2 tablet (50MG) by oral route 4 - 6 hours as needed 04/23 completed Prescrib ed Elsewher e: No Locat ion: [facility] Modify By: [email or web address] trick En counter DateTime : 01/30/20 11 02:00:00 PM Not Available Not Available Not Available cholestyr amine (with sugar) 4 gram powder for susp in a packet ADMINIST ER 1 PACKET EVERY DAY WITH A MEAL. AVOID OTHER MEDS WITHIN 1 HOUR OR 4 TO 6 HOURS AFTER DOSE active Not Available Not Available No t Available nitrofura ntoin monohydra te/macroc rystals 100 mg capsule take 1 capsule (100MG) by oral route every 12 hours with food x 7 days 10/26 completed Not Available Not Available Not Available 19 29 mg iron-1 mg chewable tablet chew 1 tablet by oral route every day 04/23 completed Prescrib ed Elsewher e: No Locat ion: [facility] odmary carmen By: [email or web address] trick En counter DateTime : 02/15/20 10:48:08 AM Not Available Not Available Not Available Vitals Date Recorded Body height Body mass index (BMI) Body weight Systolic And Diastolic Provider Name and Address Organization Details Last Updated DateTime 08/16/2024 170.18 cm 27.3 kg/m2 90410.07 g 126/88 mm[Hg] Donna [facility] 08/16/2024 17:51:26 Date Recorded Body height Provider Name an d Address Organization Details Last Updated DateTime 01/19/2025 170.18 cm [facility] 01/19/2025 15:38:13 Date Recorded Body height Body mass index (BMI) Body weight Systolic And Diastolic Provider Name and Address Organization Details Last Updated DateTime 03/05/2025 170.18 cm 27.4 kg/m2 31353.66 g 129/77 mm[Hg] Erica Ferreira [facility] 03/05/2025 10:37:40 Social History Question Answer Notes LastModified by Organizat ion Details LastModified Time Tobacco Smoking Status Former [facility] 02/27/2023 11:52:17 Do You Have An Advance Directive? No Information not available 08/02/2021 How Many Years Have You Consumed Alcohol? 15 Information not available 08/02/2021 Are You Blind Or Do You Have Difficulty Seeing? No Information not available 08/02/2021 What Is Your Level Of Caffeine Consumption? Occasional Information not available 08/02/2021 How Much Tobacco Do You Chew? None Information not available 08/02/2021 In The 14 Days Before Symptom Onset, Have You Had Close Contact With A Laboratory-confir med COVID-19 While That Case Was Ill? No Information not available 08/02/2021 In The 14 Days Before Symptom Onset, Have You Had Close Contact With A Person Who Is Under Investigation For COVID-19 While That Person Was Ill? No Information not available 08/02/2021 Have You Been To An Area Known To Be High Risk For COVID-19? No Information not available 08/02/2021 Are You Deaf Or Do You Have Serious Difficulty Hearing? No Information not available 08/02/2021 What Type Of Diet Are You Following? REGULAR Information not available 08/02/2021 What Is The Highest Grade Or Level Of School You Have Completed Or The Highest Degree You Have Received? [id number] Information not available 08/02/2021 Are There Any Guns Present In Your Home? No Information not available 08/02/2021 Do You Use Protection During Sex? No Information not available 08/02/2021 Do You Use Your Seat Belt Or Car Seat Routinely? Yes Information not available 08/02/2021 Do You Have Smoke And Carbon Monoxide Detectors In Your Home? Yes Information not available 08/02/2021 At What Age Did You Start Smoking Tobacco? 11 Information not available 08/02/2021 How Much Tobacco Do You Smoke? No Information not available 08/02/2021 Do You Use Sunscreen Routinely? Yes Information not available 08/02/2021 Have You Used IV Drugs? No Information not available 08/02/2021 Do You Have Difficulty Walking Or Climbing Stairs? No [email or web address] Information not available 10/27/2023 Sex: Unknown Functional Status Question Answer Note LastModified by Organizat ion Details LastModified Time Do you use any illicit or recreational drugs? No Information not available 08/02/2021 What is your level of alcohol consumption? Occasional Information not available 08/02/2021 Are you able to walk independently without assistance or assistive devices? YESWOREST Information not available 08/02/2021 Are you able to care for yourself independently? Yes Information not available 10/27/2023 What is your occupation? None Information not available 08/02/2021 Do you have difficulty dressing, bathing, grooming, or toileting? No [email or web address] Information not available 10/27/2023 What is your exercise level? Heavy Information not available 08/02/2021 Mental Status Question Answer Note LastModified by Organization D etails LastModified Time Do you feel stressed (tense, restless, nervous, or anxious, or unable to sleep at night)? [id number] Information not available 08/02/2021 Family History Relationship Description Onset Age of this Age Resolved Age Notes LastModified by Organization Details LastModified Time Father No current problems or disability [email or web address] Not available 11/2019 12:18:50 Mother No current problems or disability [email or web address] Not available 11/2019 12:18:50 Medical History Condition Response History of STI History of abnormal pap Y Psychiatric Illness Y Gynecological History Statement/Question Response Abnormal Pap Yes Date of Last Mammogram 03/13/2022 Date of LMP N Was last menstrual period normal Y STIs/STDs Y HPV Vaccine N Current Control Method Tubal Ligat ion Age at First Child 14 If Post Menopausal, Age at Menopause 37 Sexually Active? Y Menses Monthly N Age of first menstrual cycle 10 Date of Last Pap Smear 10/26/2022 Sexual Problems? N LMP Unknown Y Obstetrics History GPAL:G 1 P 1 0 0 1 Type Value Full Term 1 Living 1 Total 1 Past Encounters Encounter ID Performer Location Encounter Start Date Encounter Closed Date Diagnosis/Indication Diagnosis SNOMED-CT Code Diagnosis ICD10 Code Diagnosis IMO Codes Diagnosis Note [id number] Edgardo Phillips MD [place] [address] [address] 05/18/2020 09:45:59 05/18/2020 10:30:34 Gynecologic examination 45967347 Z01.419 This patient is here for her annual exam. A thorough history was taken. A physical exam was performed. Age appropriat e routine health screening was ordered, performed, and discussed. Recommende d testing was ordered. She was asked to follow up in one year. She will be informed of any test results. Mammogram - [ordered] Cholestero l - [ ordered] Pap - today [id number] Edgardo Phillips MD [place] [address] [address] 06/27/2020 12:43:01 06/28/2020 16:29:08 Urinary tract infectious disease 32309235 N39.0 [id number] Edgardo Phillips MD [place] [address] [address] 08/02/2021 09:31:52 08/02/2021 10:28:31 Gynecologic examination 81237046 Z01.419 This patient is here for her annual exam. A thorough history was taken. A physical exam was performed. Age appropriat e routine health screening was ordered, performed, and discussed. Recommende d testing was ordered. She was asked to follow up in one year. She will be informed of any test results. Mammogram - [ordered] Cholestero l - [ ordered] Pap - today [id number] Guerline Cifuentes [facility] [address],[place] [address] 08/30/2022 14:49:30 08/30/2022 16:35:10 Urinary symptoms 900649951 R39.9 Urine sent cultureTre ated UTIRx sent Counseled on r/b's, most common side effects of this therapy with instructio ns to stop medication with any significan t abnormal change in mood especially with thoughts of suicide/se lf-harm/benjamin rm to others. Understand ing verbalized . Time spent in visit is a total of 15 mins with at least 50% of visit consisting of counseling and review of plan of care. [id number] Guerline Cifuentes [facility] [address],[place] [address] 02/27/2023 11:50:17 02/27/2023 12:17:53 Urinary symptoms 533462342 R39.9 Vaginitis 39426189 N76.0 Ointment sent for vulvar irritation .STD screen sentVagnit is swab sentWill contact with results and any further treatment needed. Time spent in visit is a total of 15 mins with at least 50% of visit consisting of counseling and review of plan of care. [id number] Edgardo Phillips MD [place] [address],[place] [address] 10/27/2023 10:12:07 10/27/2023 11:20:38 Irritable bowel syndrome 17474717 K58.9 needs referral for alternatin g constipati on and excessive stool. Gynecologi c examination 90314080 Z01.419 Z11.51 This patient is here for her annual exam. A thorough history was taken. A physical exam was performed. Age appropriat e routine health screening was ordered, performed, and discussed. Recommende d testing was ordered. She was asked to follow up in one year. She will be informed of any test results. Cholestero l - [ ordered] Pap - today MD Mervin Whyte [address] [address] 11/17/2023 10:50:15 11/18/2023 15:55:19 Testosterone level below reference range 896676464 R89.1 Reduced libido 5303269 R 68.82 Lack of energy 431485755 R53.83 patient has a normal breast exam. We elected not to do any imaging. She will maintain mammogram Surveillan ce of the breasts. Talked about reduced libido and decreased energy. We agreed to a trial of testostero ne. She will obtain the testostero ne and bring it and get instructio n on injection of testostero ne. Spent more than 20 minutes total with the patient and the work required to complete her care. [id number] Edgardo Phillips MD [place] [address],[place] [address] 11/26/2023 09:54:56 11/26/2023 10:43:04 Testosterone level below reference range 762427917 R89.1 [id number] Edgardo Phillips MD [place] [address] [address] 08/16/2024 12:44:02 08/17/2024 07:34:24 Dysuria 53557904 R30.0 [id number] MD Mervin Whyte [address] [address] 01/18/2025 15:54:18 01/18/2025 17:05:45 Postmenopausal bleeding 88482739 N95.0 [id number] MD Mervin Whyte [address] [address] 01/19/2025 15:14:58 01/19/2025 15:57:59 Postmenopausal bleeding 34587424 N95.0 [id number] this patient is a 44-year-ol d female who presents for follow-up on ultrasound . She had some postmenopa usal bleeding. She had a pelvic ultrasound . She was found to have a 4.5 cm ovarian cyst. She is a thin endometriu m. We agreed to discontinu e progestin for 3 weeks. She is on hormone replacemen t therapy, combined. we agreed to observe bleeding. Endometria l biopsy not required at this time with a 2 mm endometriu m. To follow-up on ovarian cyst in 2 months with repeat ultrasound [id number] Edgardo Phillips MD [place] [address] [address] 03/05/2025 10:09:00 03/05/2025 21:33:54 Drug therapy finding 080683972 Z79.890 98940446 Cobalamin deficiency 190 702380 E53.8 [id number] Menorrhagia 093224646 N9 2.0 [id number] This patient is a 44-year-ol d female presents for heavy vaginal bleeding. She has longstandi ng very heavy bleeding. Her menses are regular. However, they require double protection . Patient has accidents, getting blood on her bedding and clothing. Is affected work. She changes a pad or tampon every hour. She leaks blood around the pad and tampon. This bleeding has a profound impact on her quality of life and her activities of daily living. Discussed various treatment options with the patient. We agreed to endometria l ablation. The patient understand s the procedure. The procedure was described to the patient in great detail. the patient also understand s the risks. The risks were also explained in detail. She understand s that injuries May occur during surgery. She understand s these injuries can result in hospitaliz ation, more surgery, and severe illness. She understand s there is risk of hemorrhage and infection. Spent over 30 minutes on the patient's care in total. We talked about hormone replacemen t therapy. Talked about B12 deficiency in addition to the above [id number] Edgardo Phillips MD [place] [address] [address] 03/21/2025 16:15:20 03/21/2025 17:10:15 Cyst of left ovary [id number] N83.202 [id number] Health Concerns Section Related Observation LastModified by Organization Detai ls LastModified Time None Recorded Concern Status LastModified by Organization Details LastModified Time None Recorded Advance Directives Directive N: Payers Insurance Date Sequence Insurance Name Policy Number Policy Grimes Covered Member ID Grimes Member ID Guarantor Name 03/18/2025 1 [facility] [id number] Jeanmarie Goodwin [id number] Courtney Christa Notes Date Note Type Note Provider Name and Address Organization Details Recorded Time 01/19/2025 text/html this patient is a 44-year-old female who presents for follow-up on ultrasound. She had some postmenopausal bleeding. She had a pelvic ultrasound. She was found to have a 4.5 cm ovarian cyst. She is a thin endometrium. We agreed to discontinue progestin for 3 weeks. She is on hormone replacement therapy, combined. we agreed to observe bleeding. Endometrial biopsy not required at this time with a 2 mm endometrium. To follow-up on ovarian cyst in 2 months with repeat ultrasound Edgardo Phillips MD [address], [place], [address], [facility] 01/19/2025 15:57:49 03/05/2025 text/html Alan - Abnormal BleedingReported by Patient This patient is a 44-year-old female presents for heavy vaginal bleeding. She has longstanding very heavy bleeding. Her menses are regular. However, they require double protection. Patient has accidents, getting blood on her bedding and clothing. Is affected work. She changes a pad or tampon every hour. She leaks blood around the pad and tampon. This bleeding has a profound impact on her quality of life and her activities of daily living. Discussed various treatment options with the patient. We agreed to endometrial ablation. The patient understands the procedure. The procedure was described to the patient in great detail. the patient also understands the risks. The risks were also explained in detail. She understands that injuries May occur during surgery. She understands these injuries can result in hospitalization, more surgery, and severe illness. She understands there is risk of hemorrhage and infection. Spent over 30 minutes on the patient's care in total. We talked about hormone replacement therapy. Talked about B12 deficiency in addition to the above Edgardo Phillips MD [address], [place], [address], [facility] 03/05/2025 20:30:35 OBGyn Episode Ob Episode Information Episode Created Date Number of Fetuses Patient Bloodtype Patient rh Status Prepregnancy Weight lbs Domestic Partner Domestic Partner Phone Father Name Signaler Status 04/10/20 20 1 CLOSED Fetus Data First Name Last Name Admitted to NICU Weight (g) Sex Living Outcome Pediatric Complications Fetus ID Race Codes Race Delivery Type [id number] Primary Ángel Calculation Initial Ángel Date Initial Exam Date Initial Exam Provider Initial Ultrasound Date Last Menstrual Period Date Ultra Sound Weeks Gestation 0 Eighteen To Twenty Week Ángel Update Ultra Sound Date Fundal Height At Umbil Quickening Date Ultra Sound Latest Weeks Gestation Final Ángel Confirmed By Final Ángel Confirmed Date Final Ángel Date Ultra Sound Latest Days Gestation 0 0 Menstrual History Last Menstrual Date Menses Monthly On Bcp Conception Prior Menses Frequency Hcg Plus Date Menarche Onset Age Delivery Information Delivery Date Delivery Type Labor Anesthesia Weeks Gestation Incision Type Labor Labor Length Hrs Delivered By Post Complications Tubal Sterilization Discharge Date Comments 6 Discharge Information Feeding Method Contraceptive Method Maternal HG B and HCT Levels
[2025-03-23 08:40] VITALS: BP 119/71; PULSE 59; TEMP 36.7; O2SAT 99; BMI 27.3
[2025-03-23] MEDS: LACTATED RINGERS 1,000 ML 30 ML IV CONT (09:15)
[2025-03-23] MEDS: ACETAMINOPHEN 500 MG TABLET 1000 MG PO (09:23)
--- NOTE | 2025-03-23 09:39 | WPDANESEPPF ---
Anes - Initial Pre Proc Eval Procedure: Operation Date: 03/23/25 10:30 Proposed Procedures p Hysteroscopy with Endometrial Ablation - Edgardo Phillips MD Date/Time: 03/23/25 09:39 Surgeon: Edgardo Phillips MD Pre Op Diagnosis: menorrhaghia with regular cycle Patient Data Age: 44 Gender: F Height: 1.75 m Weight: 83.8 kg Last Vital Signs Temp 36.7 C 03/23/25 08:40 Pulse 59 L 03/23/25 08:40 BP 119/71 03/23/25 08:40 Pulse Ox 99 03/23/25 08:40 O2 Del Method Room Air 03/23/25 08:40 Allergies Allergy/AdvReac Type Severity Reaction Status Date / Time No Known Allergies Allergy Verified 03/23/25 08:52 Home Medications ?Medication ?Instructions ?Recorded ?Confirmed ?Type estradiol 2 mg tablet 2 mg PO DAILY 05/13/23 03/09/25 History norethindrone acetate 5 mg tablet 5 mg PO DAILY 05/13/23 03/09/25 History Patient hx anesthesia problems: none Family hx anesthesia problems: none Results Review: All pre-operative results and documents have been reviewed as part of the pre-operative evaluation. [facility] Past Medical History Medical History (Updated 12/09/23 @ 10:38 by Abraham Munoz MD) Anxiety Surgical History Surgical History H/O breast augmentation Social History Social History Smoking packs per day: 0.15 Smoking cigarettes per day: 3.0 Years smoked: 14 Smoking pack-years: 2.10 Smoking status: Former smoker Tobacco type: cigarettes Second hand tobacco smoke exposure: No Smoking end date: 05/12/98 Alcohol intake: current Drinks per week: 6 Alcohol use details: wine Substance use: current Substance use type: marijuana Other substance usage details: marijuana use daily Last use: Daily Living arrangements: with family Spiritual care concerns: No Anes - Eval Final PreProcedure Day of Procedure 03/23/25 09:39 Patient weight: overweight Heart: regular rate and rhythm Lungs: clear to auscultation Airway: Mallampati scale class II Neurological: alert and oriented Last oral intake: >/= 8 hours ASA classification: III Emergent: no Anesthetic plan: proceed Anesthesia type and monitoring: general LMA and standard monitoring Results Review: All pre-operative results and documents have been reviewed as part of the pre-operative evaluation. Informed Consent: The patient's anesthetic plan and its attendant risks and benefits were discussed with the patient/family/POA. Questions were solicited and answers provided to the satisfaction of the patient/family/POA.
--- NOTE | 2025-03-23 09:55 | PM.IMHP ---
H&P: HPI History of Present Illness Date/Time: 03/23/25 09:55 Chief Complaint: Heavy vaginal bleeding Narrative: 44-year-old female with severe menorrhagia. We have agreed to perform endometrial ablation with hysteroscopy. She understands risks, benefits, and alternatives. She has completed informed consent process is ready to proceed. The patient understands the details of the procedure. The procedure has been explained in detail. She understands the risks. She understands that injuries may occur that result in hospitalization, more surgery, and severe illness. She understands risk of hemorrhage and infection. She denies any chest pain or shortness of breath. She denies any nausea, vomiting, fever, chills. Review of Systems Review of Systems: All systems reviewed & are unremarkable except as noted in HPI and below Constitutional: Constitutional: Denies chills, Denies fatigue, Denies fever(s) and Denies weakness Eyes: Eyes: Denies blurry vision, Denies change in vision, Denies loss of peripheral vision, Denies loss of vision, Denies other visual disturbances and Denies eye pain ENT: Denies vertigo, Denies dizziness, Denies hearing loss, Denies mouth pain, Denies nasal obstruction, Denies neck mass and Denies neck pain Cardiovascular: Cardiovascular: Denies chest pain, Denies diaphoresis, Denies syncope, Denies leg edema and Denies dyspnea Respiratory: Respiratory: Denies chest congestion, Denies cough, Denies hemoptysis, Denies dyspnea and Denies wheezing Gastrointestinal: Gastrointestinal: Denies abdominal pain, Denies constipation, Denies diarrhea, Denies nausea and Denies vomiting Genitourinary: Genitourinary: Denies hematuria, Denies change in libido, Denies nocturia, Denies genital lesions, Denies flank pain and Denies urinary urgency Musculoskeletal: Musculoskeletal: Denies abnormal gait, Denies back pain, Denies myalgias, Denies arthralgias, Denies joint swelling, Denies muscle weakness and Denies neck pain Integumentary/Breasts: Skin/Breast: Denies swelling, Denies breast pain, Denies breast mass, Denies dry skin, Denies nipple discharge, Denies unusual bruising and Denies jaundice Neurologic: Denies Neuro-related abnormal movements, Denies Abnormal speech present, Denies abnormal gait, Denies behavioral changes, Denies confusion, Denies vertigo, Denies dizziness, Denies syncope, Denies loss of vision, Denies memory loss, Denies convulsions and Denies weakness Psychiatric: Psychiatric: Denies abnormal sleep pattern, Denies behavioral changes, Denies change in libido, Denies confusion, Denies depression, Denies anhedonia and Denies memory loss Endocrine: Endocrine: Reports no additional endocrine complaints, Denies change in libido and Denies fatigue Hematologic/Lymphatic: Hematologic/Lymphatic: Reports no additional hematologic/lymphatic complaints Allergic/Immunologic: Allergic/Immunologic: Reports no additional allergic/immunologic complaints and Denies wheezing [facility] Past Medical History Medical History (Updated 03/23/25 @ 09:59 by Edgardo Phillips MD) Anxiety Surgical History Surgical History H/O breast augmentation Social History Social History Smoking packs per day: 0.15 Smoking cigarettes per day: 3.0 Years smoked: 14 Smoking pack-years: 2.10 Smoking status: Former smoker Tobacco type: cigarettes Second hand tobacco smoke exposure: No Smoking end date: 05/12/98 Alcohol intake: current Drinks per week: 6 Alcohol use details: wine Substance use: current Substance use type: marijuana Other substance usage details: marijuana use daily Last use: Daily Living arrangements: with family Spiritual care concerns: No Meds Home Medications and Allergies Home Medications ?Medication ?Instructions ?Recorded ?Confirmed ?Type estradiol 2 mg tablet 2 mg PO DAILY 05/13/23 03/09/25 History norethindrone acetate 5 mg tablet 5 mg PO DAILY 05/13/23 03/09/25 History Allergies Allergy/AdvReac Type Severity Reaction Status Date / Time No Known Allergies Allergy Verified 03/23/25 08:52 Vital Signs Vital Signs - 24 hr 03/23/25 08:40 Temperature 98.1 F Pulse Rate 59 L Blood Pressure 119/71 Pulse Oximetry 99 Oxygen Delivery Room Air Exam Const: General: cooperative, healthy appearing, comfortable and no acute distress Orientation/consciousness: oriented to person, oriented to place and oriented to time HENMT: Head: normal to inspection Ears: external ears normal Face/Nose/Sinus: Normal external nose present and normal facial exam Face and sinus: normal facial exam Eyes: General: appearance normal, both eyes and all related structures Neck: Neck: normal visual inspection, trachea midline and supple Resp: Auscultation: clear to auscultation bilaterally, no crackles, no rales, no rhonchi and no wheezes Cardio: Rate: regular rate Rhythm: regular rhythm Heart sounds: no click, no murmurs and no rubs GI: GI Palp: No abdominal tenderness, No Soft to palpation, No Tenderness to palpation present (GI) and No Palpable mass present Auscultation: normal bowel sounds Skin: General skin exam: normal color and no rashes or lesions noted Neuro: General: oriented to person, oriented to place and oriented to time Extrem: General: normal to inspection, no joint enlargement, no clubbing, cyanosis or edema, no pedal edema and no calf tenderness Psych: Appearance: grossly normal Mental Status: mental status grossly normal Speech and movement: Normal speech and movement present Assessment and Plan Assessment and plan (1) Menorrhagia: Code(s): N92.0 - Excessive and frequent menstruation with regular cycle Status: Acute Plan 44-year-old female with severe menorrhagia. We have agreed to perform endometrial ablation with hysteroscopy. She understands risks, benefits, and alternatives. She has completed informed consent process is ready to proceed.
--- NOTE | 2025-03-23 10:00 | WPDHPUPDATE1 ---
History and Physical Update Update Date/Time: 03/23/25 10:00 History and Physical has been reviewed, including an updated exam of the patient. There are NO changes in the patient's condition. Risks, benefits, and alternatives have been discussed and questions answered. Patient agrees to proceed with procedure.
--- NOTE | 2025-03-23 10:33 | S_PTH ---
PATIENT: Courtney Goodwin LOC: [facility] U#:[id number] AGE/SX: 44/F ROOM: RE03/23/[address]: Edgardo Phillips MD : 1980 BED: DIS: 03/23/2025 SPEC #: [id number] RECD: 03/23/25 13:25 STATUS: SELMA REToni #: [id number] FABIOLA: 03/23/25 10:[address]: Edgardo Phillips DEPT: [facility] Surgical RECD BY: Caridad Taylor ENTERED: 03/23/25 13:25 SP TYPE: Surgical OTHR DR: Arvind AlegriaMD Tissues: A - Endometrial Curettings Procedures: Hematoxylin and Eosin Stain Gross and Microscopic Level 4
--- NOTE | 2025-03-23 10:42 | W.PM.PROC2 ---
Procedure Note - Detailed Date of Procedure 03/23/25 Pre-op Diagnosis menorrhaghia with regular cycle Post-op Diagnosis Same Procedure Performed endometrial ablation with hysteroscopy d&c Surgeon Edgardo Phillips MD Anesthesia MAC Indications Severe menorrhagia Findings Normal vulva vagina and cervix. Normal endometrium. Description of Procedure The patient was taken to the operating room. She was prepped and draped in the dorsal lithotomy position after induction of mac anesthesia. A speculum was placed in the vagina. Cervix grasped with a tenaculum. The cervix was dilated to about 1 cm. The hysteroscope was inserted. The above findings were noted. Endometrial curettage was performed with a medium-size curette. All surfaces of the endometrium were affected by the curettage. The specimens were collected and sent to pathology. Measurements were taken of the uterus and cervix. The uterine length was then entered into the hand piece of the Erin device. The device was inserted into the intrauterine cavity. The array of the device was expanded. The balloon cuff was inflated. A good seal was achieved. The energy and safety cycles were initiated and completed. The array was collapsed and the instrument was withdrawn after deflating the balloon cuff. Hysteroscope was reinserted. Above findings were noted. The hysteroscope was removed. The patient tolerated the procedure well. The speculum and tenaculum were removed. She was taken to recovery in stable condition. Sponge lap and needle counts were correct x2. Estimated Blood Loss 15 Pathology Yes Complications No immediate complications Condition Stable Disposition Same day
[2025-03-23] MEDS: ONDANSETRON INJ 4 MG/2 ML VIAL IV PUSH (10:50)
[2025-03-23] MEDS: oxyCODONE HCL (*CRX) 5 MG TAB IR PO (11:01)
[2025-03-23 11:10] VITALS: BP 139/86; PULSE 53; RESP 16
[2025-03-23 11:33] VITALS: BP 133/88; PULSE 60; RESP 15
== END 2025-03-23 11:34 | disposition home or self-care (01) ==
PROVIDERS: PCP Family Medicine Sports Medicine; Visit Provider Obstetrics & Gynecology
PROC: 0U5B8ZZ Destruction of Endometrium, Via Natural or Artificial Opening Endoscopic (ICD-10-PCS; CPT 58563; principal; 2025-03-23 10:30)
DX: N92.0 Excessive and frequent menstruation with regular cycle (principal); F12.90 Cannabis use, unspecified, uncomplicated; Z87.891 Personal history of nicotine dependence
CPT/HCPCS: 58563; 88305; A9270; J1885; J2003; J2250; J2405; J2704; J3010; J7120